=== PATIENT | male | born 1940 | race Caucasian/White ===

== ENCOUNTER → 2020-08-10 | Outpatient (CLI) | payer MEDICARE, OTHER ==
[~2020-08-10] MED LIST: ACET325 PO; ASPI325 PO; ASPI325EC PO; ATEN25; ATOR10 PO; ATOR40TA PO; CLOP75 PO; Carvedilol25 MG PO; DOXE25 PO; ENOX40I SC; EZET10 PO; HYDCHL25 PO; LISI10; LISI20 PO; MELO7.5 PO; OMEPRAZOLE MAGN20 MG PO; OXYACE5T PO; POTCHL20ER PO; Percocet 5-3251 EACH PO; Prinivil10 MG PO; RXPROM25 PO; SIMV10 PO; TRIPLE ACTION JOINT PO; XARELTO20 MG PO
== END | disposition home or self-care (01) ==
LOC: LAB SHORT 08:21 → PLD 08:21
DX: L57.8 Other skin changes due to chronic exposure to nonionizing radiation (principal); L81.4 Other melanin hyperpigmentation
CPT/HCPCS: 88305

== ENCOUNTER → 2020-08-23 | Outpatient (CLI) | payer MEDICARE, OTHER ==
[2020-08-23 11:01] LABS: Source, Urine Clean Catch
[2020-08-23 13:39] LABS: Bilirubin, Urine Neg (Neg); Blood, Urine Neg (Neg); Glucose Qualitative, Urine Neg (Neg); Ketones, Urine 1+ (Neg); Leukocyte Esterase, Urine Neg (Neg); Nitrite, Urine Neg (Neg); Protein, Urine Neg (Neg); Urobilinogen, Urine 1+ (Normal)
[2020-08-23 13:57] LABS: Appearance, Urine Clear (Clear); Color, Urine Amber (P-Yellow)
== END | disposition home or self-care (01) ==
LOC: LAB 10:01 → LAB SHORT 10:01
PROVIDERS: Internal Medicine
DX: R35.0 Frequency of micturition (principal)
CPT/HCPCS: 81003

== ENCOUNTER → 2024-03-26 | Outpatient (CLI) | payer MEDICARE, OTHER ==
[2024-03-26 10:34] LABS: Source, Urine Clean Catch
[2024-03-26 13:34] LABS: Appearance, Urine Clear (Clear); Bilirubin, Urine Neg (Neg); Blood, Urine Neg (Neg); Color, Urine Yellow (P-Yellow); Glucose Qualitative, Urine Neg (Neg); Ketones, Urine Neg (Neg); Leukocyte Esterase, Urine Neg (Neg); Nitrite, Urine Neg (Neg); Protein, Urine Neg (Neg); Specific Gravity, Urine 1.015 (1.003-1.022); Urobilinogen, Urine NORM (Normal)
== END ==
LOC: LAB 10:33 → LAB SHORT 10:33
PROVIDERS: Internal Medicine
DX: R35.0 Frequency of micturition (principal)
CPT/HCPCS: 81003

== ENCOUNTER 2024-04-08 00:54 | Day surgery (SDC) | payer MEDICARE, OTHER ==
[2024-04-08 10:36] VITALS: BP 175/83
--- NOTE | 2024-04-08 17:06 | NUR ---
PT PULLED BACK INTO MI ROOM 4 EAGERLY NEEDING TO USE THE RESTROOM. PT REPORTS VOIDING FIRST THING THIS MORNING AROUND 0730. HE THEN CONSUMED 3 CUPS OF COFFEE, APPROXIMATELY 24 OUNCES AND NO WATER. T SCANNED AT 1027 AND BLADDER SCAN INDICATES 104ML URINE IN THE BLADDER. PT TO RESTROOM AND VOIDED 100ML CLEAR YELLOW URINE. AT 1033 PT RESCANNED FOR POST VOID RESIDUAL AND BLADDER SCAN INDICATED 2ML IN THE BLADDER.
[2024-04-08] MEDS ORDERED: NEBI5 PO (17:09)
[2024-04-08] MEDS ORDERED: B-12500 MC2 PO (17:09)
[2024-04-08] MEDS ORDERED: METF500 PO (17:10)
[2024-04-08] MEDS ORDERED: SILD50TA PO (17:11)
[2024-04-08] MEDS ORDERED: ZYRTEC10 M2 PO (17:11)
[2024-04-08] MEDS ORDERED: Flonase 0.05% N16 GM (17:11)
[2024-04-08] MEDS ORDERED: OMEP20ER PO (17:13)
[2024-04-08] MEDS ORDERED: ACET500 PO (17:13)
[2024-04-08] MEDS ORDERED: Carisoprodol350 MG PO (17:15)
[2024-04-08] MEDS ORDERED: Voltaren100 GM TOP (17:15)
[2024-04-08] MEDS ORDERED: MELATONIN5 M1 PO (17:15)
--- NOTE | 2024-04-08 17:27 | NUR ---
TREATMENT RECORD INCLUDING NURSES NOTE FOR TODAY'S VISIST FAXED TO DR CONTRERAS
== END 2024-04-08 10:37 | disposition home or self-care (01) ==
LOC: ATC 00:54
DX: N39.41 Urge incontinence (principal); R35.0 Frequency of micturition; I10 Essential (primary) hypertension; E78.5 Hyperlipidemia, unspecified; K21.9 Gastro-esophageal reflux disease without esophagitis; G31.84 Mild cognitive impairment of uncertain or unknown etiology; I25.10 Atherosclerotic heart disease of native coronary artery without angina pectoris; Z87.891 Personal history of nicotine dependence; Z79.899 Other long term (current) drug therapy
CPT/HCPCS: 51798

== ENCOUNTER 2024-07-29 18:52 | Emergency (ER) | payer MEDICARE, OTHER ==
[~2024-07-29] VITALS: Ht 188 cm; Wt 104.3 kg
[~2024-07-29 18:52] MED LIST changes: +ACET500 PO; +B-12500 MC2 PO; +Carisoprodol350 MG PO; +Flonase 0.05% N16 GM; +MELATONIN5 M1 PO; +METF500 PO; +NEBI5 PO; +OMEP20ER PO; +SILD50TA PO; +Voltaren100 GM TOP; +ZYRTEC10 M2 PO
[2024-07-29 19:06] VITALS: BP 133/91
== END 2024-07-29 22:36 | disposition home or self-care (01) ==
LOC: ER 18:52
DX: S61.011A Laceration without foreign body of right thumb without damage to nail, initial encounter (principal); S61.215A Laceration without foreign body of left ring finger without damage to nail, initial encounter; S61.210A Laceration without foreign body of right index finger without damage to nail, initial encounter; S61.214A Laceration without foreign body of right ring finger without damage to nail, initial encounter; E11.9 Type 2 diabetes mellitus without complications; I10 Essential (primary) hypertension; E78.5 Hyperlipidemia, unspecified; K21.9 Gastro-esophageal reflux disease without esophagitis; Z90.49 Acquired absence of other specified parts of digestive tract; Z87.891 Personal history of nicotine dependence; Z88.8 Allergy status to other drugs, medicaments and biological substances; Z79.84 Long term (current) use of oral hypoglycemic drugs; Z79.82 Long term (current) use of aspirin; Z79.899 Other long term (current) drug therapy; W31.89XA Contact with other specified machinery, initial encounter
CPT/HCPCS: 12041; 73130; 73140; 99283-25